=== PATIENT | female | born 1950 | race Hispanic/Latino ===

== ENCOUNTER 2023-05-01 15:40 | Emergency (ER) | payer BC ==
[~2023-05-01] VITALS: Ht 152.4 cm; Wt 533.0 kg
[2023-05-01] MEDS ORDERED: ACETAMINOPHEN WITH CODEINE 1 TAB TAB PO ONE (16:30)
[2023-05-01 17:45] VITALS: BP 132/74; PULSE 62; RESP 18; O2SAT 98
== END 2023-05-01 17:35 | disposition home or self-care (01) ==
LOC: EDH 15:40
DX: S52.512A Displaced fracture of left radial styloid process, initial encounter for closed fracture (principal); W01.0XXA Fall on same level from slipping, tripping and stumbling without subsequent striking against object, initial encounter; Y93.89 Activity, other specified; Y92.89 Other specified places as the place of occurrence of the external cause; Y99.8 Other external cause status
CPT/HCPCS: 29125; 73110

== ENCOUNTER 2023-05-05 21:26 | Emergency (ER) | payer BC ==
[~2023-05-05] VITALS: Ht 154.9 cm; Wt 72.1 kg
[2023-05-05] MEDS ORDERED: ACET-2079 PO (22:39)
[2023-05-05] MEDS: MORPHINE 4 MG SYG IM ONE (22:41)
[2023-05-05 23:42] VITALS: BP 136/73; PULSE 72; RESP 18; O2SAT 100
== END 2023-05-05 23:48 | disposition home or self-care (01) ==
LOC: EDH 21:26
DX: S52.502A Unspecified fracture of the lower end of left radius, initial encounter for closed fracture (principal); E11.9 Type 2 diabetes mellitus without complications; E78.00 Pure hypercholesterolemia, unspecified; I10 Essential (primary) hypertension; Z90.710 Acquired absence of both cervix and uterus; X58.XXXA Exposure to other specified factors, initial encounter; Y93.89 Activity, other specified; Y92.89 Other specified places as the place of occurrence of the external cause; Y99.8 Other external cause status
CPT/HCPCS: 99284; 73080; 29125; 96372; J2270